=== PATIENT | female | born 1960 | race Caucasian/White ===

== ENCOUNTER → 2018-02-27 | Outpatient (CLI) | payer BC ==
[2018-02-27 12:29] LABS: BASOPHILS # (AUTO) 0.09 x10^3/uL (0-0.1); BASOPHILS % (AUTO) 1 % (0-1); EOSINOPHILS # (AUTO) 0.18 x10^3/uL (0-0.4); EOSINOPHILS % (AUTO) 3 % (1-7); LYMPHOCYTES # (AUTO) 1.18 x10^3/uL (1-3.4); LYMPHOCYTES % (AUTO) 16 % (22-44); MD NO; MEAN CORPUSCULAR HEMOGLOBIN 34.1 pg (27.0-34.8); MEAN CORPUSCULAR HGB CONC 34.4 g/dL (32.4-35.8); MEAN CORPUSCULAR VOLUME 99.2 fL (80-100); MEAN PLATELET VOLUME 10.4 fL (7.4-10.4); MONOCYTES # (AUTO) 0.58 x10^3/uL (0.2-0.8); MONOCYTES % (AUTO) 8 % (2-9); NEUTROPHILS # (AUTO) 5.27 x10^3/uL (1.8-6.8); NEUTROPHILS % (AUTO) 72 % (42-75); PLATELET COUNT 194 x10^3/uL (130-400); RED BLOOD COUNT 4.18 x10^6/uL (3.82-5.3); RED CELL DISTRIBUTION WIDTH 13.7 % (9.6-15.2)
[2018-02-27 12:49] LABS: CHLORIDE 118 mmol/L (98-107)
[2018-02-27 13:04] LABS: ALANINE AMINOTRANSFERASE 20 U/L (12-78); ALBUMIN 3.7 g/dL (3.4-5.0); ALKALINE PHOSPHATASE 76 U/L (45-117); ANION GAP 5 mmol/L (5-15); BILIRUBIN,TOTAL 0.3 mg/dL (0.2-1.0); CHOL/HDL RATIO 4.7; CHOLESTEROL, TOTAL 221 mg/dL (140-239); CREATININE 0.81 mg/dL (0.55-1.02); HDL CHOL % 21 % (28-40); HDL CHOLESTEROL (DIRECT) 47 mg/dL (40-60); LDL CHOLESTEROL,CALCULATED 152 mg/dL (54-169); LDL/HDL RATIO 3.2 (0.5-3.0); TOTAL PROTEIN 7.4 g/dL (6.4-8.2); TRIGLYCERIDES 109 mg/dL (50-200); VLDL CHOLESTEROL 22 mg/dL (0-25)
== END | disposition home or self-care (01) ==
LOC: CFH 10:29
PROVIDERS: ATTEND Physician Assistant
DX: M79.642 Pain in left hand (principal); M25.522 Pain in left elbow; R20.0 Anesthesia of skin; E55.9 Vitamin D deficiency, unspecified; I10 Essential (primary) hypertension; N81.4 Uterovaginal prolapse, unspecified; J44.9 Chronic obstructive pulmonary disease, unspecified; F17.200 Nicotine dependence, unspecified, uncomplicated; Z78.0 Asymptomatic menopausal state
CPT/HCPCS: 36415; 80053; 80061; 82306; 84443; 85025

== ENCOUNTER 2019-07-30 09:31 | Emergency (ER) | payer BC ==
[~2019-07-30] VITALS: Ht 162.6 cm; Wt 52.0 kg
[2019-07-30 09:39] VITALS: BP 167/76
[2019-07-30] MEDS ORDERED: LIDOCAINE-MPF 1%, 5ML ONE (10:12)
[2019-07-30] MEDS ORDERED: DIPH,PERTUSS(ACELL),TET VAC/PF 0.5 ML IM-VACC ONE ×2 (10:12→10:30)
[2019-07-30] MEDS ORDERED: LIDOCAINE-MPF 1%, 5ML INFIL ONE (10:30)
== END 2019-07-30 11:23 | disposition home or self-care (01) ==
LOC: ED 11:06
DX: L02.412 Cutaneous abscess of left axilla (principal); F17.200 Nicotine dependence, unspecified, uncomplicated
CPT/HCPCS: 10060; 90471; 90715; 99283

== ENCOUNTER 2019-08-01 09:32 | Emergency (ER) | payer BC ==
[~2019-08-01] VITALS: Ht 162.6 cm; Wt 52.4 kg
[2019-08-01 09:34] VITALS: BP 119/84
--- NOTE | 2019-08-01 09:46 | NUR ---
59 y/o female PRESENTS TO ED WITH C/O LEFT ARMPIT PAIN D/T ABSCESS. PER PT "I WAS HERE SUNDAY WITH AN ABSCESS. THEY DRAINED AND PACKED IT. I'VE BEEN ON ABX AND IT IS STILL SO PAINFUL." SIGNIFICANT OTHER BEDSIDE.
[2019-08-01] MEDS ORDERED: LISINOPRIL (09:48)
[2019-08-01] MEDS ORDERED: HYDROmorphone 1 MG/ML, 1ML INJ ONE (09:59)
[2019-08-01] MEDS ORDERED: HYDROmorphone 2 MG/ML, 1ML IM ONE (10:00)
[2019-08-01] MEDS ORDERED: LIDOCAINE-MPF 1%, 5ML ONE (10:00)
[2019-08-01] MEDS ORDERED: LIDOCAINE-MPF 1%, 5ML INFIL ONE (10:00)
--- NOTE | 2019-08-01 11:18 | NUR ---
Patient/Caregiver given discharge instructions and they have confirmed that they understand the instructions. Patient ambulatory with steady gait. PT LEFT WITH ALL PERSONAL BELONGINGS.
== END 2019-08-01 11:21 | disposition home or self-care (01) ==
LOC: ED 10:39
DX: L02.412 Cutaneous abscess of left axilla (principal); F17.200 Nicotine dependence, unspecified, uncomplicated
CPT/HCPCS: 10060; 96372; 99284; J1170

== ENCOUNTER 2019-08-03 08:40 | Emergency (ER) | payer BC ==
[~2019-08-03] VITALS: Ht 162.6 cm; Wt 51.0 kg
[~2019-08-03 08:40] MED LIST: LISINOPRIL
[2019-08-03 08:43] VITALS: BP 112/73
--- NOTE | 2019-08-03 08:52 | NUR ---
PT HERE FOR ABSCESS RECHECK IN LEFT ARMPIT. PT STATES INITIAL I&D WAS SUNDAY, THEN CAME BACK FOR A RECHECK SUNDAY AND WAS TOLD TO COME BACK AGAIN TODAY. PT STATES THERE IS PACKING IN WOUND.
--- NOTE | 2019-08-03 09:08 | NUR ---
Patient/Caregiver given discharge instructions and they have confirmed that they understand the instructions. Patient ambulatory with steady gait.
--- NOTE | 2019-08-03 09:20 | NUR ---
Patient/Caregiver given discharge instructions and they have confirmed that they understand the instructions. Patient ambulatory with steady gait.
== END 2019-08-03 09:21 | disposition home or self-care (01) ==
LOC: ED 09:05
DX: Z48.01 Encounter for change or removal of surgical wound dressing (principal)
CPT/HCPCS: 99282

== ENCOUNTER 2019-12-15 21:37 | Emergency (ER) | payer BC ==
[~2019-12-15] VITALS: Ht 162.6 cm; Wt 59.4 kg
[2019-12-15 21:48] VITALS: BP 171/97
[2019-12-15] MEDS ORDERED: IBUPROFEN 600 MG TABLET ONE (22:19)
[2019-12-15] MEDS ORDERED: IBUPROFEN 600 MG TABLET PO ONE (22:30)
== END 2019-12-15 23:10 | disposition home or self-care (01) ==
LOC: ED 23:00
DX: S93.491A Sprain of other ligament of right ankle, initial encounter (principal); F17.210 Nicotine dependence, cigarettes, uncomplicated; X50.0XXA Overexertion from strenuous movement or load, initial encounter; Y93.89 Activity, other specified; Y92.009 Unspecified place in unspecified non-institutional (private) residence as the place of occurrence of the external cause; Y99.8 Other external cause status
CPT/HCPCS: 99283

== ENCOUNTER 2020-03-13 09:30 | Emergency (ER) | payer BC ==
[~2020-03-13] VITALS: Ht 162.6 cm; Wt 55.2 kg
[2020-03-13 09:35] VITALS: BP 162/81
[2020-03-13] MEDS ORDERED: KETOROLAC 30 MG/1 ML IM ONE (10:00)
--- NOTE | 2020-03-13 10:13 | NUR ---
PT CAME IN POV BY SON. PT C/O LEFT ANKLE PAIN, NO TRAUMA NOTED. PT STATES PAIN STARTED HURTING AT WORK. PAIN 12/09. PT DENIES NUMBNESS AND TINGLING TO EXT.
[2020-03-13] MEDS ORDERED: KETOROLAC 30 MG/1 ML ONE (10:16)
--- NOTE | 2020-03-13 10:22 | NUR ---
MEDS ADMINISTERD PER MAR
--- NOTE | 2020-03-13 11:10 | NUR ---
PT AMBULATED TO THE DISCHARGE DESK. PT EXHIBITED A STEADY GAIT.
--- NOTE | 2020-03-13 11:13 | NUR ---
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 PT STATES HER PAIN FEELS "BETTER".
== END 2020-03-13 11:12 | disposition home or self-care (01) ==
LOC: ED 09:56
DX: M72.2 Plantar fascial fibromatosis (principal); M25.572 Pain in left ankle and joints of left foot
CPT/HCPCS: 73610; 73630; 96372; 99284; J1885

== ENCOUNTER 2020-03-21 10:02 | Inpatient (IN) | payer BC ==
[~2020-03-21] VITALS: Ht 162.6 cm; Wt 63.8 kg
[~2020-03-21 10:02] MED LIST changes: -LISINOPRIL; +LISINOPRIL PO
--- NOTE | 2020-03-21 10:25 | NUR ---
THIS IS A 60 YO F W/ C/O SUDDEN ONSET RT LWR BACK PAIN 06/10 WHICH RADIATES ACROSS FLANK AND INTO RT LWR ABD. PT DENIES INJURY, DENIES PAIN W/ URINATION. PT RESTING ON [employer] W/ CALL LIGHT IN REACH, RESP EVEN AND UNLABORED, NADN.
--- NOTE | 2020-03-21 10:40 | NUR ---
PT AMBULATED TO THE BR W/ A STEADY GAIT, URINE COLLECTED.
[2020-03-21 11:00] LABS: MICROSCOPIC INDICATED
[2020-03-21] MEDS ORDERED: ONDANSETRON 2MG/ML, 2ML IVPush ONE (11:00)
[2020-03-21] MEDS ORDERED: SODIUM CHLORIDE FLUSH 10ML SYR IVF ONE (11:00)
--- NOTE | 2020-03-21 11:00 | NUR ---
PIV STARTED, LABS DRAWN, PT MEDICATED PER EMAR. PT REPORTS RELIEF OF PAIN W/ MEDS. RESTING ON GURNEY W/ CALL LIGHT IN REACH AND FAMILY AT BEDSIDE. SIDE RAILS UPX2. AWAITING CT.
[2020-03-21] MEDS ORDERED: MORPHINE SULFATE 4 MG/ML, 1ML ONE ×2 (11:02→12:40)
[2020-03-21] MEDS ORDERED: ONDANSETRON 2MG/ML, 2ML ONE (11:02)
[2020-03-21] MEDS: MORPHINE SULFATE 4 MG/ML, 1ML IVPush PRN ×2 (11:09→12:43)
--- NOTE | 2020-03-21 11:10 | NUR ---
BEDSIDE REPORT FROM JASPREET COSTA.
[2020-03-21 11:27] LABS: MEAN CORPUSCULAR HEMOGLOBIN 33.3 pg (27.0-34.8); MEAN CORPUSCULAR HGB CONC 32.6 g/dL (32.4-35.8); MEAN CORPUSCULAR VOLUME 102.1 fL (80-100); MEAN PLATELET VOLUME 9.6 fL (7.4-10.4); PLATELET COUNT 168 x10^3/uL (130-400); RED BLOOD COUNT 4.34 x10^6/uL (3.82-5.3); RED CELL DISTRIBUTION WIDTH 14.2 % (9.6-15.2)
[2020-03-21 11:37] LABS: ALANINE AMINOTRANSFERASE 13 U/L (12-78); ALBUMIN 3.9 g/dL (3.4-5.0); ANION GAP 5 mmol/L (5-15); CALCIUM 9.7 mg/dL (8.5-10.1); CHLORIDE 117 mmol/L (98-107); CREATININE 1.41 mg/dL (0.55-1.02)
[2020-03-21 11:39] LABS: ALKALINE PHOSPHATASE 113 U/L (45-117); BILIRUBIN,TOTAL 0.3 mg/dL (0.2-1.0); TOTAL PROTEIN 8.5 g/dL (6.4-8.2)
--- NOTE | 2020-03-21 11:42 | NUR ---
PT IN CT.
--- NOTE | 2020-03-21 11:58 | NUR ---
BACK FROM CT, VSS. FALL PRECAUTIONS IN PLACE, CALL LIGHT WITHIN REACH.
[2020-03-21 12:04] LABS: BASOPHILS # (AUTO) 0.01 x10^3/uL (0-0.1); BASOPHILS % (AUTO) 0 % (0-1); EOSINOPHILS % (AUTO) 0 % (1-7); LYMPHOCYTES # (AUTO) 0.27 x10^3/uL (1-3.4); LYMPHOCYTES % (AUTO) 2 % (22-44); MD SCAN; MONOCYTES # (AUTO) 0.26 x10^3/uL (0.2-0.8); MONOCYTES % (AUTO) 2 % (2-9); NEUTROPHILS # (AUTO) 13.13 x10^3/uL (1.8-6.8); NEUTROPHILS % (AUTO) 96 % (42-75)
[2020-03-21] MEDS ORDERED: CEFTRIAXONE PMX 1GM/50ML 50 ML ONE (12:39)
--- NOTE | 2020-03-21 12:41 | NUR ---
PLACED ON 2L NC PT SPO2 DROPPED TO 89%.
--- NOTE | 2020-03-21 12:44 | NUR ---
LIVE SOURCE OPERATOR UROLOGY CALLED @ 2041
--- NOTE | 2020-03-21 12:49 | NUR ---
urology called back @ 1819
--- NOTE | 2020-03-21 12:51 | NUR ---
DISCUSSED WITH DR. ZHU TO INITIATE SEPSIS PROTOCOL.
--- NOTE | 2020-03-21 12:58 | NUR ---
LAB AT BEDSIDE FOR BLOOD CULTURES.
[2020-03-21] MEDS ORDERED: CEFTRIAXONE PMX 1GM/50ML 50 ML IV ONE (13:00)
[2020-03-21] MEDS ORDERED: SODIUM CHLORIDE 0.9% 1,000 ML IV ONE (13:00)
--- NOTE | 2020-03-21 13:11 | NUR ---
XRAY AT BEDSIDE.
--- NOTE | 2020-03-21 13:35 | NUR ---
REPORT GIVEN TO BOW REHAIRER.
[2020-03-21] MEDS ORDERED: MIDAZOLAM 1 MG/ML, 2ML ONE (13:46)
[2020-03-21] MEDS ORDERED: FENTANYL PF 100 MCG/2ML ONE (13:46)
[2020-03-21] MEDS ORDERED: OMNIPAQUE 350 MG/ML, 50 ML BOTTLE ONE ×2 (14:10→14:15)
[2020-03-21] MEDS ORDERED: EPHEDRINE 50 MG/ML, 1ML ONE (14:10)
[2020-03-21] MEDS ORDERED: PROPOFOL 10 MG/ML, 20ML ONE (14:10)
[2020-03-21] MEDS ORDERED: MEPERIDINE/PF 25MG/0.5ML IVPush PRN (14:30)
[2020-03-21] MEDS ORDERED: OXYcodone 5 MG/5 ML ORAL.SOL UDC PO PRN (14:30)
[2020-03-21] MEDS ORDERED: HYDROmorphone 1 MG/ML, 1ML INJ IVPush PRN (14:30)
[2020-03-21] MEDS ORDERED: DIAZEPAM 5 MG/ML, 2ML IVPush PRN (14:30)
[2020-03-21] MEDS ORDERED: FENTANYL PF 100 MCG/2ML IV PRN (14:30)
[2020-03-21] MEDS ORDERED: ONDANSETRON 2MG/ML, 2ML IVPush PRN (14:30)
[2020-03-21] MEDS ORDERED: ACETAMINOPHEN 325 MG TABLET PO PRN (14:30)
[2020-03-21] MEDS ORDERED: ALBUTEROL HFA 90 MCG/SPRAY INH ONE (15:00)
[2020-03-21] MEDS ORDERED: POTASSIUM CHLORIDE 20 MEQ in SODIUM CHLORIDE 0.9% 250 ML IV ONE (15:30)
[2020-03-21] MEDS ORDERED: SODIUM CHLORIDE 0.9% 1,000ML IVBOLUS ONE (15:30)
[2020-03-21] MEDS ORDERED: MELATONIN 5 MG TABLET PO PRN (15:30)
[2020-03-21] MEDS ORDERED: hydrALAzine 20 MG/ML, 1ML IVPush PRN (15:30)
[2020-03-21] MEDS ORDERED: BUTALB/APAP/CAFFEINE 50MG/325MG/40MG PO PRN (15:30)
[2020-03-21] MEDS ORDERED: BACLOFEN 10 MG TABLET PO PRN (15:30)
[2020-03-21] MEDS ORDERED: GABAPENTIN 300 MG CAPSULE PO PRN (15:30)
[2020-03-21] MEDS: ASCORBIC ACID 500 MG TABLET PO SCH (17:13)
[2020-03-21] MEDS: BUTALB/APAP/CAFFEINE 50MG/325MG/40MG PO PRN (17:13)
[2020-03-21] MEDS: ENOXAPARIN 40 MG/0.4 ML SQ SCH (17:13)
[2020-03-21 19:15] VITALS: BP 100/69
[2020-03-21] MEDS ORDERED: ASPI-691 PO (20:00)
[2020-03-21] MEDS ORDERED: ALBU18HF INH (20:06)
[2020-03-21] MEDS: ALBUTEROL HFA 90 MCG/SPRAY INH PRN (20:27)
[2020-03-21] MEDS: NICOTINE 21 MG/24 HR PATCH.TD24 TD SCH (20:48)
[2020-03-21] MEDS: DOCUSATE 100 MG CAPSULE PO SCH (20:48)
[2020-03-21 23:31] VITALS: BP 113/77
[2020-03-22] MEDS: CEFTRIAXONE PMX 1GM/50ML 50 ML IV SCH ×2 (01:11→13:49)
[2020-03-22] MEDS: BUTALB/APAP/CAFFEINE 50MG/325MG/40MG PO PRN (01:24)
[2020-03-22 03:46] VITALS: BP 102/70
[2020-03-22] MEDS: ALBUTEROL HFA 90 MCG/SPRAY INH PRN (05:46)
[2020-03-22 06:40] LABS: MEAN CORPUSCULAR HEMOGLOBIN 33.3 pg (27.0-34.8); MEAN CORPUSCULAR HGB CONC 32.4 g/dL (32.4-35.8); MEAN PLATELET VOLUME 9.4 fL (7.4-10.4); PLATELET COUNT 122 x10^3/uL (130-400); RED BLOOD COUNT 3.74 x10^6/uL (3.82-5.3); RED CELL DISTRIBUTION WIDTH 14.9 % (9.6-15.2)
[2020-03-22 06:47] LABS: CALCIUM 8.4 mg/dL (8.5-10.1); CHLORIDE 118 mmol/L (98-107)
[2020-03-22 06:52] LABS: ALANINE AMINOTRANSFERASE 8 U/L (12-78); ALBUMIN 2.8 g/dL (3.4-5.0); ALKALINE PHOSPHATASE 88 U/L (45-117); ANION GAP 7 mmol/L (5-15); BILIRUBIN,TOTAL 0.4 mg/dL (0.2-1.0); CREATININE 1.31 mg/dL (0.55-1.02); TOTAL PROTEIN 6.7 g/dL (6.4-8.2)
[2020-03-22 07:09] LABS: BASOPHILS # (AUTO) 0.04 x10^3/uL (0-0.1); BASOPHILS % (AUTO) 0 % (0-1); EOSINOPHILS # (AUTO) 0.02 x10^3/uL (0-0.4); EOSINOPHILS % (AUTO) 0 % (1-7); LYMPHOCYTES # (AUTO) 0.57 x10^3/uL (1-3.4); LYMPHOCYTES % (AUTO) 4 % (22-44); MD SCAN; MONOCYTES # (AUTO) 0.77 x10^3/uL (0.2-0.8); MONOCYTES % (AUTO) 5 % (2-9); NEUTROPHILS # (AUTO) 12.78 x10^3/uL (1.8-6.8); NEUTROPHILS % (AUTO) 90 % (42-75)
[2020-03-22 07:17] VITALS: BP 146/93
[2020-03-22] MEDS ORDERED: ACETAMINOPHEN 325 MG TABLET ONE (07:28)
[2020-03-22] MEDS ORDERED: ACETAMINOPHEN 325 MG TABLET PO PRN (07:30)
[2020-03-22] MEDS: MULTIVITS,STRESS FORMULA 1 TABLET PO SCH (08:36)
[2020-03-22] MEDS: ZINC SULFATE 220 MG CAPSULE PO SCH (08:36)
[2020-03-22] MEDS: DOCUSATE 100 MG CAPSULE PO SCH ×2 (08:36→21:40)
[2020-03-22] MEDS: ASCORBIC ACID 500 MG TABLET PO SCH ×2 (08:36→17:46)
[2020-03-22] MEDS: SENNA/DOCUSATE TABLET PO SCH (08:36)
[2020-03-22] MEDS: CHOLECALCIFEROL 5,000u TAB PO SCH (08:37)
[2020-03-22] MEDS ORDERED: ASA/APAP/ CAFFEINE TABLET PO ONE (11:00)
[2020-03-22 14:07] VITALS: BP 146/80
[2020-03-22] MEDS ORDERED: OPIUM/BELLADONNA SUPP.RECT 16.2-60 MG PR PRN (15:30)
[2020-03-22] MEDS: PHENAZOPYRIDINE 200 MG TABLET PO SCH ×2 (15:46→21:40)
[2020-03-22] MEDS: SODIUM CHLORIDE 0.9% 1,000 ML IV SCH (15:50)
[2020-03-22] MEDS: ENOXAPARIN 40 MG/0.4 ML SQ SCH (15:50)
[2020-03-22 18:36] VITALS: BP 142/82
[2020-03-22] MEDS ORDERED: MAGNESIUM SULFATE PMX 2GM/50ML 50 ML IV ONE (19:00)
[2020-03-22] MEDS: ASA/APAP/ CAFFEINE TABLET PO PRN (19:27)
[2020-03-22] MEDS: NICOTINE 21 MG/24 HR PATCH.TD24 TD SCH (21:00)
[2020-03-22] MEDS ORDERED: ONDANSETRON 2MG/ML, 2ML ONE (23:16)
[2020-03-22] MEDS: ONDANSETRON 2MG/ML, 2ML IVPush PRN (23:18)
[2020-03-23] MEDS: SODIUM CHLORIDE 0.9% 1,000 ML IV SCH ×4 (00:10→19:26)
[2020-03-23] MEDS: CEFTRIAXONE PMX 1GM/50ML 50 ML IV SCH ×2 (02:09→15:14)
[2020-03-23] MEDS: ASA/APAP/ CAFFEINE TABLET PO PRN ×3 (02:51→19:59)
[2020-03-23 02:55] VITALS: BP 123/89
[2020-03-23 05:45] LABS: CHLORIDE 120 mmol/L (98-107)
[2020-03-23 05:51] LABS: ALANINE AMINOTRANSFERASE 11 U/L (12-78); ALBUMIN 2.3 g/dL (3.4-5.0); ALKALINE PHOSPHATASE 95 U/L (45-117); ANION GAP 5 mmol/L (5-15); BILIRUBIN,TOTAL 0.2 mg/dL (0.2-1.0); CALCIUM 8.6 mg/dL (8.5-10.1); CREATININE 0.96 mg/dL (0.55-1.02); TOTAL PROTEIN 6.1 g/dL (6.4-8.2)
[2020-03-23 06:49] LABS: BASOPHILS # (AUTO) 0.03 x10^3/uL (0-0.1); BASOPHILS % (AUTO) 0 % (0-1); EOSINOPHILS # (AUTO) 0.01 x10^3/uL (0-0.4); EOSINOPHILS % (AUTO) 0 % (1-7); LYMPHOCYTES # (AUTO) 0.35 x10^3/uL (1-3.4); LYMPHOCYTES % (AUTO) 5 % (22-44); MD SCAN; MEAN CORPUSCULAR HEMOGLOBIN 33.3 pg (27.0-34.8); MEAN CORPUSCULAR HGB CONC 32.6 g/dL (32.4-35.8); MEAN CORPUSCULAR VOLUME 102.3 fL (80-100); MEAN PLATELET VOLUME 9.7 fL (7.4-10.4); MONOCYTES # (AUTO) 0.57 x10^3/uL (0.2-0.8); MONOCYTES % (AUTO) 8 % (2-9); NEUTROPHILS # (AUTO) 6.32 x10^3/uL (1.8-6.8); NEUTROPHILS % (AUTO) 87 % (42-75); PLATELET COUNT 88 x10^3/uL (130-400); RED BLOOD COUNT 3.23 x10^6/uL (3.82-5.3); RED CELL DISTRIBUTION WIDTH 14.7 % (9.6-15.2)
[2020-03-23] MEDS: CHOLECALCIFEROL 5,000u TAB PO SCH (07:44)
[2020-03-23] MEDS: ZINC SULFATE 220 MG CAPSULE PO SCH (07:44)
[2020-03-23] MEDS: SENNA/DOCUSATE TABLET PO SCH (07:44)
[2020-03-23] MEDS: PHENAZOPYRIDINE 200 MG TABLET PO SCH ×3 (07:44→19:58)
[2020-03-23] MEDS: DOCUSATE 100 MG CAPSULE PO SCH ×2 (07:44→19:59)
[2020-03-23] MEDS: ASCORBIC ACID 500 MG TABLET PO SCH ×2 (07:45→15:51)
[2020-03-23] MEDS: NICOTINE 21 MG/24 HR PATCH.TD24 TD SCH (07:45)
[2020-03-23] MEDS: MULTIVITS,STRESS FORMULA 1 TABLET PO SCH (07:45)
[2020-03-23 08:13] VITALS: BP 139/82
[2020-03-23 15:30] VITALS: BP 179/99
[2020-03-23] MEDS: ENOXAPARIN 40 MG/0.4 ML SQ SCH (15:51)
[2020-03-23] MEDS: LABETALOL 5MG/ML, 20ML IVPush PRN (15:52)
[2020-03-23 16:57] VITALS: BP 152/89
[2020-03-23] MEDS ORDERED: MELATONIN 5 MG TABLET PO PRN (17:30)
[2020-03-23] MEDS ORDERED: CETIRIZINE 10 MG TABLET PO PRN (17:30)
[2020-03-23] MEDS: TAMSULOSIN 0.4 MG CAP.ER.24H PO SCH (18:35)
[2020-03-23 18:43] VITALS: BP 128/90
[2020-03-24] MEDS: SODIUM CHLORIDE 0.9% 1,000 ML IV SCH ×3 (01:18→14:40)
[2020-03-24 01:20] VITALS: BP_SYST 167; BP_DIAS 105; BP_DIAS 110
[2020-03-24] MEDS: LABETALOL 5MG/ML, 20ML IVPush PRN (01:33)
[2020-03-24] MEDS: ASA/APAP/ CAFFEINE TABLET PO PRN ×3 (01:33→17:37)
[2020-03-24 02:45] VITALS: BP 143/98
[2020-03-24] MEDS: CEFTRIAXONE PMX 1GM/50ML 50 ML IV SCH ×2 (03:19→15:40)
[2020-03-24] MEDS: NICOTINE 21 MG/24 HR PATCH.TD24 TD SCH (07:07)
[2020-03-24 08:00] VITALS: BP 151/96
[2020-03-24] MEDS: ONDANSETRON 2MG/ML, 2ML IVPush PRN (08:27)
[2020-03-24] MEDS: PHENAZOPYRIDINE 200 MG TABLET PO SCH ×2 (08:36→15:40)
[2020-03-24] MEDS: CHOLECALCIFEROL 5,000u TAB PO SCH (08:36)
[2020-03-24] MEDS: DOCUSATE 100 MG CAPSULE PO SCH (08:36)
[2020-03-24] MEDS: TAMSULOSIN 0.4 MG CAP.ER.24H PO SCH (08:36)
[2020-03-24] MEDS: SENNA/DOCUSATE TABLET PO SCH (08:36)
[2020-03-24] MEDS ORDERED: LISINOPRIL 20 MG TABLET PO SCH (09:00)
[2020-03-24 13:26] VITALS: BP 155/99
[2020-03-24] MEDS: ENOXAPARIN 40 MG/0.4 ML SQ SCH (15:40)
[2020-03-24 16:34] VITALS: BP 148/94
[2020-03-24] MEDS ORDERED: TAMS-11 PO (17:11)
[2020-03-24] MEDS ORDERED: ACID1TAB7 PO (17:11)
[2020-03-24] MEDS ORDERED: CIPR500T87 PO (17:11)
[2020-03-24] MEDS ORDERED: PHEN-583 PO (17:11)
[2020-03-24] MEDS ORDERED: LACTOBACILLUS CHEW TABLET PO SCH (21:00)
[2020-03-24] MEDS ORDERED: CIPROFLOXACIN 500 MG TABLET PO SCH (21:00)
== END 2020-03-24 17:45 | disposition home or self-care (01) | DRG 854 ==
LOC: ED 11:19 → EDIP 13:35 → 4NE 16:10
PROVIDERS: ADMIT Hospitalist; ATTEND Internal Medicine
PROC: 0T788DZ Dilation of Bilateral Ureters with Intraluminal Device, Via Natural or Artificial Opening Endoscopic (ICD-10-PCS; principal; 2020-03-21 13:45)
DX: A41.9 Sepsis, unspecified organism (principal); E87.0 Hyperosmolality and hypernatremia; N13.6 Pyonephrosis; D53.9 Nutritional anemia, unspecified; D69.6 Thrombocytopenia, unspecified; E83.42 Hypomagnesemia; E87.6 Hypokalemia; E88.09 Other disorders of plasma-protein metabolism, not elsewhere classified; F17.200 Nicotine dependence, unspecified, uncomplicated; I10 Essential (primary) hypertension; J44.9 Chronic obstructive pulmonary disease, unspecified; Z87.440 Personal history of urinary (tract) infections; Z87.442 Personal history of urinary calculi
CPT/HCPCS: 36415; 71045; 74176; 74420; 80053; 81001; 83605; 83690; 83735; 85025; 87040; 87086; 87635; 93005; 96365; 96375; 96376; 99291; G0378; J0696; J1650; J2250; J2405; J2704; J3010; J3480; Q9967; C1758; C1769; C2617; J2270; J3475; J7030; J7050

== ENCOUNTER 2020-04-01 12:08 | Inpatient (IN) | payer BC ==
[~2020-04-01] VITALS: Ht 162.6 cm; Wt 65.1 kg
[~2020-04-01 12:08] MED LIST changes: +ACID1TAB7 PO; +ALBU18HF INH; +ASPI-691 PO; +CIPR500T87 PO; +PHEN-583 PO; +TAMS-11 PO
--- NOTE | 2020-04-01 12:26 | NUR ---
PT AMBULATED TO RESTROOM WITH STEADY GAIT TO PROVIDE URINE SAMPLE. UA ORDERED PER PROTOCOL AND SENT TO LAB.
[2020-04-01 12:44] LABS: MICROSCOPIC INDICATED
[2020-04-01] MEDS ORDERED: MORPHINE SULFATE 4 MG/ML, 1ML ONE ×2 (12:48→13:30)
[2020-04-01] MEDS ORDERED: ONDANSETRON 2MG/ML, 2ML ONE (12:48)
[2020-04-01] MEDS: MORPHINE SULFATE 4 MG/ML, 1ML IVPush PRN ×2 (12:50→13:32)
--- NOTE | 2020-04-01 12:53 | NUR ---
PIV PLACED, LABS DRAWN. MEDS ADMIN PER AUG. PT POSITIONED FOR COMFORT. SPOUSE AT BEDSIDE.
[2020-04-01] MEDS ORDERED: ONDANSETRON 2MG/ML, 2ML IVPush ONE (13:00)
[2020-04-01] MEDS ORDERED: SODIUM CHLORIDE FLUSH 10ML SYR IVF ONE (13:00)
[2020-04-01 13:18] LABS: BASOPHILS # (AUTO) 0.09 x10^3/uL (0-0.1); BASOPHILS % (AUTO) 1 % (0-1); EOSINOPHILS % (AUTO) 4 % (1-7); LYMPHOCYTES # (AUTO) 1.41 x10^3/uL (1-3.4); LYMPHOCYTES % (AUTO) 12 % (22-44); MD NO; MEAN CORPUSCULAR HEMOGLOBIN 32.8 pg (27.0-34.8); MEAN CORPUSCULAR HGB CONC 32.9 g/dL (32.4-35.8); MEAN PLATELET VOLUME 8.6 fL (7.4-10.4); MONOCYTES % (AUTO) 9 % (2-9); NEUTROPHILS # (AUTO) 8.47 x10^3/uL (1.8-6.8); NEUTROPHILS % (AUTO) 75 % (42-75); PLATELET COUNT 635 x10^3/uL (130-400); RED BLOOD COUNT 4.18 x10^6/uL (3.82-5.3)
[2020-04-01 13:33] LABS: ALANINE AMINOTRANSFERASE 19 U/L (12-78); ALBUMIN 3.1 g/dL (3.4-5.0); ANION GAP 4 mmol/L (5-15); CALCIUM 9.6 mg/dL (8.5-10.1); CHLORIDE 112 mmol/L (98-107); CREATININE 0.99 mg/dL (0.55-1.02)
[2020-04-01 13:33] LABS: MICROSCOPIC INDICATED
--- NOTE | 2020-04-01 13:34 | NUR ---
PT C/O 02/08 PAIN. SECOND DOSE PAIN CARPENTER/LABOR.
[2020-04-01 13:35] LABS: ALKALINE PHOSPHATASE 141 U/L (45-117); BILIRUBIN,TOTAL 0.4 mg/dL (0.2-1.0); TOTAL PROTEIN 8.6 g/dL (6.4-8.2)
--- NOTE | 2020-04-01 13:38 | NUR ---
ALL RESULTS ARE BACK AT THIS TIME. CHART UP FOR RECHECK.
[2020-04-01] MEDS ORDERED: CEFTRIAXONE PMX 1GM/50ML 50 ML ONE (14:24)
--- NOTE | 2020-04-01 14:28 | NUR ---
IV ABX ADMIN PER AUG. PT TO BE ADMIT.
[2020-04-01] MEDS ORDERED: CEFTRIAXONE PMX 1GM/50ML 50 ML IV ONE (14:30)
[2020-04-01] MEDS ORDERED: SODIUM CHLORIDE FLUSH 10ML SYR IVF PRN (15:00)
[2020-04-01] MEDS ORDERED: TEMAZEPAM 15 MG CAPSULE PO PRN (15:30)
[2020-04-01] MEDS ORDERED: ALBUTEROL HFA 90 MCG/SPRAY INH PRN (15:30)
[2020-04-01] MEDS ORDERED: ACETAMINOPHEN 325 MG TABLET PO PRN (15:30)
[2020-04-01] MEDS ORDERED: METOCLOPRAMIDE 5 MG/ML, 2ML IVPush PRN (15:30)
[2020-04-01] MEDS ORDERED: ENALAPRILAT 1.25 MG/ML, 2ML IVPush PRN (15:30)
[2020-04-01 15:55] VITALS: BP 164/93
[2020-04-01] MEDS ORDERED: LISINOPRIL 40 MG TABLET PO SCH (15:59)
[2020-04-01 16:03] VITALS: BP 164/93
[2020-04-01] MEDS: morphine SULFATE 10 MG/ML, 1ML IVPush PRN ×2 (16:30→20:53)
[2020-04-01] MEDS: NS + 20MEQ KCL 1,000 ML IV SCH (16:31)
[2020-04-01] MEDS: PHENAZOPYRIDINE 200 MG TABLET PO SCH ×2 (16:31→20:54)
[2020-04-01 18:42] VITALS: BP 148/80
[2020-04-01] MEDS: ASA/APAP/ CAFFEINE TABLET PO SCH (20:54)
[2020-04-01] MEDS ORDERED: CIPROFLOXACIN 500 MG TABLET PO SCH (21:00)
[2020-04-02 00:20] VITALS: BP 160/86
[2020-04-02] MEDS: morphine SULFATE 10 MG/ML, 1ML IVPush PRN ×7 (00:24→23:40)
[2020-04-02] MEDS: NS + 20MEQ KCL 1,000 ML IV SCH ×3 (00:45→16:32)
[2020-04-02 04:25] VITALS: BP 147/85
[2020-04-02 05:18] LABS: CHLORIDE 117 mmol/L (98-107)
[2020-04-02 05:26] LABS: BASOPHILS # (AUTO) 0.02 x10^3/uL (0-0.1); BASOPHILS % (AUTO) 0 % (0-1); EOSINOPHILS # (AUTO) 0.37 x10^3/uL (0-0.4); EOSINOPHILS % (AUTO) 3 % (1-7); LYMPHOCYTES # (AUTO) 0.68 x10^3/uL (1-3.4); LYMPHOCYTES % (AUTO) 5 % (22-44); MD NO; MEAN CORPUSCULAR HEMOGLOBIN 32.7 pg (27.0-34.8); MEAN CORPUSCULAR HGB CONC 32.4 g/dL (32.4-35.8); MEAN PLATELET VOLUME 8.5 fL (7.4-10.4); MONOCYTES # (AUTO) 1.01 x10^3/uL (0.2-0.8); MONOCYTES % (AUTO) 8 % (2-9); NEUTROPHILS % (AUTO) 85 % (42-75); PLATELET COUNT 484 x10^3/uL (130-400); RED CELL DISTRIBUTION WIDTH 15.5 % (9.6-15.2)
[2020-04-02 05:47] LABS: ANION GAP 2 mmol/L (5-15); CALCIUM 8.7 mg/dL (8.5-10.1); CREATININE 0.95 mg/dL (0.55-1.02)
[2020-04-02 07:56] VITALS: BP 143/81
[2020-04-02] MEDS: ASA/APAP/ CAFFEINE TABLET PO SCH ×2 (09:07→21:58)
[2020-04-02] MEDS: LISINOPRIL 40 MG TABLET PO SCH (09:07)
[2020-04-02] MEDS: TAMSULOSIN 0.4 MG CAP.ER.24H PO SCH (09:07)
[2020-04-02] MEDS: PHENAZOPYRIDINE 200 MG TABLET PO SCH ×3 (09:07→21:58)
[2020-04-02] MEDS: KETOROLAC 30 MG/1 ML IV PRN ×2 (09:07→16:31)
[2020-04-02] MEDS ORDERED: CEFTRIAXONE PMX 2GM/50ML 50 ML IV SCH (12:00)
[2020-04-02 12:55] VITALS: BP 124/77
[2020-04-02] MEDS: AMPICILLIN/SULBACTAM 3 GM in SODIUM CHLORIDE 0.9% 100 ML IV SCH ×2 (16:32→23:39)
[2020-04-02 18:50] VITALS: BP 149/66
[2020-04-02] MEDS: ONDANSETRON ODT 4 MG PO PRN (20:21)
[2020-04-03] MEDS: NS + 20MEQ KCL 1,000 ML IV SCH ×4 (00:14→23:51)
[2020-04-03 00:21] VITALS: BP 130/85
[2020-04-03] MEDS ORDERED: LORazepam 0.5MG TABLET PO PRN (04:30)
[2020-04-03] MEDS: LISINOPRIL 40 MG TABLET PO SCH (07:30)
[2020-04-03] MEDS: AMPICILLIN/SULBACTAM 3 GM in SODIUM CHLORIDE 0.9% 100 ML IV SCH (07:36)
[2020-04-03 07:44] VITALS: BP 129/84
[2020-04-03] MEDS: ASA/APAP/ CAFFEINE TABLET PO SCH ×2 (08:55→21:00)
[2020-04-03] MEDS: PHENAZOPYRIDINE 200 MG TABLET PO SCH ×3 (08:55→20:27)
[2020-04-03] MEDS: TAMSULOSIN 0.4 MG CAP.ER.24H PO SCH (08:55)
[2020-04-03] MEDS ORDERED: FENTANYL PF 100 MCG/2ML IV PRN (09:00)
[2020-04-03] MEDS ORDERED: LORazepam 2 MG/ML, 1ML IVPush PRN (09:00)
[2020-04-03] MEDS ORDERED: KETOROLAC 30 MG/1 ML IVPush PRN (09:00)
[2020-04-03] MEDS ORDERED: HYDROmorphone 1 MG/ML, 1ML INJ IVPush PRN (09:00)
[2020-04-03] MEDS ORDERED: LABETALOL 5MG/ML, 20ML IV PRN (09:00)
[2020-04-03] MEDS ORDERED: ACETAMINOPHEN 325 MG TABLET PO PRN (09:00)
[2020-04-03] MEDS ORDERED: METHOCARBAMOL 1,000 MG in DEXTROSE 5% 100 ML IV PRN (09:00)
[2020-04-03] MEDS ORDERED: EPHEDRINE 50 MG/ML, 1ML IVPush PRN (09:00)
[2020-04-03] MEDS ORDERED: PROMETHAZINE 12.5 MG SUPP PR PRN (09:00)
[2020-04-03] MEDS ORDERED: OXYcodone 5 MG/5 ML ORAL.SOL UDC PO PRN (09:00)
[2020-04-03] MEDS ORDERED: hydrALAzine 20 MG/ML, 1ML IV PRN (09:00)
[2020-04-03] MEDS ORDERED: ONDANSETRON 2MG/ML, 2ML IVPush PRN (09:00)
[2020-04-03] MEDS ORDERED: FENTANYL PF 250 MCG/5ML ONE (09:11)
[2020-04-03] MEDS ORDERED: DEXAMETHASONE 4 MG/ML, 1ML ONE (10:54)
[2020-04-03] MEDS ORDERED: ROCURONIUM 10MG/ML,5ML ONE (10:54)
[2020-04-03] MEDS ORDERED: PROPOFOL 50 ML ONE (10:54)
[2020-04-03] MEDS ORDERED: CEFAZOLIN 1,000 MG ONE (10:54)
[2020-04-03] MEDS ORDERED: SUCCINYLCHOLINE 20 MG/ML, 10ML ONE (10:54)
[2020-04-03] MEDS ORDERED: GLYCOPYRROLATE 0.2MG/1ML, 5ML ONE (10:54)
[2020-04-03] MEDS ORDERED: ONDANSETRON 2MG/ML, 2ML ONE (10:54)
[2020-04-03] MEDS ORDERED: NEOSTIGMINE 1 MG/ML, 10ML ONE (10:54)
[2020-04-03] MEDS ORDERED: PROPOFOL 10 MG/ML, 20ML ONE (10:54)
[2020-04-03] MEDS ORDERED: [UNRECOGNIZED DRUG - OTHER] INJ ONE (11:22)
[2020-04-03] MEDS ORDERED: FENTANYL PF 100 MCG/2ML ONE (12:12)
[2020-04-03] MEDS ORDERED: DEXMEDETOMIDINE 200 MCG/2 ML ONE (12:17)
[2020-04-03] MEDS ORDERED: MORPHINE SULFATE 4 MG/ML, 1ML ONE (12:23)
[2020-04-03] MEDS ORDERED: LORazepam 2 MG/ML, 1ML ONE (12:40)
[2020-04-03] MEDS ORDERED: MORPHINE SULFATE 4 MG/ML, 1ML IVPush ONE (13:30)
[2020-04-03] MEDS ORDERED: MEROPENEM 1 GM in SODIUM CHLORIDE 0.9% 100 ML IV SCH (14:00)
[2020-04-03] MEDS ORDERED: DIPHENHYDRAMINE 50 MG/ML, 1ML IVPush PRN (14:00)
[2020-04-03] MEDS ORDERED: VANCOMYCIN PER PHARMACY MC PRN (14:00)
[2020-04-03] MEDS ORDERED: LACTATED RINGERS 1,000 ML IVBOLUS ONE (14:00)
[2020-04-03] MEDS ORDERED: ACETAMINOPHEN 650 MG SUPP PR PRN (14:30)
[2020-04-03] MEDS: LINEZOLID 600 MG TABLET PO SCH ×2 (15:44→20:27)
[2020-04-03] MEDS: ERTAPENEM 1 GM in SODIUM CHLORIDE 0.9% 50 ML IV SCH (15:53)
[2020-04-03 16:05] LABS: BASOPHILS % (AUTO) 0 % (0-1); EOSINOPHILS # (AUTO) 0.01 x10^3/uL (0-0.4); EOSINOPHILS % (AUTO) 0 % (1-7); LYMPHOCYTES # (AUTO) 0.07 x10^3/uL (1-3.4); LYMPHOCYTES % (AUTO) 0 % (22-44); MD NO; MEAN CORPUSCULAR HEMOGLOBIN 32.4 pg (27.0-34.8); MEAN CORPUSCULAR HGB CONC 32.1 g/dL (32.4-35.8); MEAN PLATELET VOLUME 8.2 fL (7.4-10.4); MONOCYTES # (AUTO) 0.04 x10^3/uL (0.2-0.8); MONOCYTES % (AUTO) 0 % (2-9); NEUTROPHILS # (AUTO) 16.13 x10^3/uL (1.8-6.8); NEUTROPHILS % (AUTO) 99 % (42-75); PLATELET COUNT 326 x10^3/uL (130-400); RED BLOOD COUNT 3.24 x10^6/uL (3.82-5.3); RED CELL DISTRIBUTION WIDTH 14.7 % (9.6-15.2)
[2020-04-03 16:06] LABS: TROPONIN I 0.444 ng/mL (0.000-0.045)
[2020-04-03] MEDS: KETOROLAC 30 MG/1 ML IV PRN (20:30)
[2020-04-04 07:24] LABS: MEAN CORPUSCULAR HGB CONC 31.5 g/dL (32.4-35.8); MEAN PLATELET VOLUME 8.6 fL (7.4-10.4); PLATELET COUNT 239 x10^3/uL (130-400); RED BLOOD COUNT 2.89 x10^6/uL (3.82-5.3); RED CELL DISTRIBUTION WIDTH 15.2 % (9.6-15.2)
[2020-04-04 07:28] LABS: ANION GAP 5 mmol/L (5-15); CALCIUM 8.4 mg/dL (8.5-10.1); CHLORIDE 116 mmol/L (98-107); CREATININE 1.23 mg/dL (0.55-1.02)
[2020-04-04 07:48] LABS: BASOPHILS % (AUTO) 0 % (0-1); EOSINOPHILS # (AUTO) 0.02 x10^3/uL (0-0.4); EOSINOPHILS % (AUTO) 0 % (1-7); LYMPHOCYTES # (AUTO) 0.49 x10^3/uL (1-3.4); LYMPHOCYTES % (AUTO) 2 % (22-44); MD SCAN; MONOCYTES % (AUTO) 5 % (2-9); NEUTROPHILS # (AUTO) 20.41 x10^3/uL (1.8-6.8); NEUTROPHILS % (AUTO) 92 % (42-75)
[2020-04-04] MEDS: TAMSULOSIN 0.4 MG CAP.ER.24H PO SCH (09:14)
[2020-04-04] MEDS: LINEZOLID 600 MG TABLET PO SCH ×2 (09:14→20:21)
[2020-04-04] MEDS: LISINOPRIL 40 MG TABLET PO SCH (09:14)
[2020-04-04] MEDS: PHENAZOPYRIDINE 200 MG TABLET PO SCH ×2 (09:14→16:00)
[2020-04-04] MEDS: ASA/APAP/ CAFFEINE TABLET PO SCH ×2 (10:02→20:21)
[2020-04-04] MEDS: KETOROLAC 30 MG/1 ML IV PRN (11:31)
[2020-04-04] MEDS: morphine SULFATE 10 MG/ML, 1ML IVPush PRN ×3 (11:31→20:21)
[2020-04-04] MEDS: ONDANSETRON ODT 4 MG PO PRN (11:31)
[2020-04-04] MEDS: ERTAPENEM 1 GM in SODIUM CHLORIDE 0.9% 50 ML IV SCH (14:57)
[2020-04-04 19:28] VITALS: BP 143/82
[2020-04-05 01:41] VITALS: BP 142/79
[2020-04-05] MEDS: morphine SULFATE 10 MG/ML, 1ML IVPush PRN (05:32)
[2020-04-05 06:17] LABS: ANION GAP 7 mmol/L (5-15); BASOPHILS % (AUTO) 1 % (0-1); CALCIUM 8.9 mg/dL (8.5-10.1); CHLORIDE 118 mmol/L (98-107); EOSINOPHILS % (AUTO) 2 % (1-7); LYMPHOCYTES % (AUTO) 3 % (22-44); MEAN CORPUSCULAR HEMOGLOBIN 32.2 pg (27.0-34.8); MEAN PLATELET VOLUME 9.6 fL (7.4-10.4); MONOCYTES % (AUTO) 8 % (2-9); NEUTROPHILS % (AUTO) 87 % (42-75); PLATELET COUNT 226 x10^3/uL (130-400); RED BLOOD COUNT 2.91 x10^6/uL (3.82-5.3); RED CELL DISTRIBUTION WIDTH 14.6 % (9.6-15.2)
[2020-04-05] MEDS ORDERED: GLUCAGON 1 MG IM PRN (07:00)
[2020-04-05] MEDS ORDERED: DEXTROSE 50%, 50ML SYRINGE IVPush PRN (07:00)
[2020-04-05] MEDS ORDERED: DEXTROSE 4 GM TAB.CHEW PO PRN (07:00)
[2020-04-05 07:25] VITALS: BP 104/69
[2020-04-05 08:16] LABS: MD SCAN
[2020-04-05] MEDS: LISINOPRIL 40 MG TABLET PO SCH (08:21)
[2020-04-05] MEDS: ASA/APAP/ CAFFEINE TABLET PO SCH ×2 (08:21→19:16)
[2020-04-05] MEDS: TAMSULOSIN 0.4 MG CAP.ER.24H PO SCH (08:21)
[2020-04-05] MEDS: LINEZOLID 600 MG TABLET PO SCH ×2 (08:21→19:16)
[2020-04-05] MEDS: KETOROLAC 30 MG/1 ML IV PRN (08:39)
[2020-04-05] MEDS: SODIUM CHLORIDE FLUSH 10ML SYR IVF SCH ×2 (09:00→19:16)
[2020-04-05 09:37] VITALS: BP 153/88
[2020-04-05] MEDS: ONDANSETRON ODT 4 MG PO PRN (11:20)
[2020-04-05 13:55] VITALS: BP 149/79
[2020-04-05] MEDS: ERTAPENEM 1 GM in SODIUM CHLORIDE 0.9% 50 ML IV SCH (14:49)
[2020-04-05 19:02] VITALS: BP 147/80
[2020-04-05] MEDS ORDERED: DOCUSATE 100 MG CAPSULE ONE (19:11)
[2020-04-05] MEDS: DOCUSATE 100 MG CAPSULE PO SCH (19:16)
[2020-04-06 01:10] VITALS: BP 180/98
[2020-04-06 02:35] VITALS: BP 151/93
[2020-04-06 06:59] LABS: BASOPHILS % (AUTO) 1 % (0-1); EOSINOPHILS % (AUTO) 3 % (1-7); LYMPHOCYTES % (AUTO) 8 % (22-44); MEAN CORPUSCULAR HEMOGLOBIN 31.8 pg (27.0-34.8); MEAN CORPUSCULAR HGB CONC 31.8 g/dL (32.4-35.8); MEAN PLATELET VOLUME 9.4 fL (7.4-10.4); MONOCYTES % (AUTO) 10 % (2-9); NEUTROPHILS % (AUTO) 79 % (42-75); PLATELET COUNT 213 x10^3/uL (130-400); RED BLOOD COUNT 2.91 x10^6/uL (3.82-5.3); RED CELL DISTRIBUTION WIDTH 14.4 % (9.6-15.2)
[2020-04-06 07:30] VITALS: BP 162/85
[2020-04-06 07:35] LABS: MD SCAN
[2020-04-06] MEDS: LINEZOLID 600 MG TABLET PO SCH (08:07)
[2020-04-06] MEDS: LISINOPRIL 40 MG TABLET PO SCH (08:07)
[2020-04-06] MEDS: TAMSULOSIN 0.4 MG CAP.ER.24H PO SCH (08:07)
[2020-04-06] MEDS: DOCUSATE 100 MG CAPSULE PO SCH (08:07)
[2020-04-06] MEDS: ASA/APAP/ CAFFEINE TABLET PO SCH (08:07)
[2020-04-06] MEDS: SODIUM CHLORIDE FLUSH 10ML SYR IVF SCH (08:08)
[2020-04-06] MEDS ORDERED: FOSF3PAC PO (09:47)
[2020-04-06] MEDS ORDERED: LINE600T15 PO (09:47)
[2020-04-06 12:22] VITALS: BP 160/88
== END 2020-04-06 12:45 | disposition home or self-care (01) | DRG 853 ==
LOC: ED 13:02 → SUATTDRO 15:20 → 4NE 15:24 → OBSVTOIN 15:24 → INTOOBSV 15:24 → 4NE 15:44 → CCU 04-03 14:23 → 4NE 04-04 10:58
PROVIDERS: ADMIT Internal Medicine; ATTEND Internal Medicine
PROC: 0T9B70Z Drainage of Bladder with Drainage Device, Via Natural or Artificial Opening (ICD-10-PCS; 2020-04-01)
PROC: 0TC68ZZ Extirpation of Matter from Right Ureter, Via Natural or Artificial Opening Endoscopic (ICD-10-PCS; 2020-04-03)
PROC: 0T778DZ Dilation of Left Ureter with Intraluminal Device, Via Natural or Artificial Opening Endoscopic (ICD-10-PCS; 2020-04-03)
PROC: BT1B1ZZ Fluoroscopy of Bladder and Urethra using Low Osmolar Contrast (ICD-10-PCS; 2020-04-03)
PROC: 0TF78ZZ Fragmentation in Left Ureter, Via Natural or Artificial Opening Endoscopic (ICD-10-PCS; 2020-04-03)
PROC: 0TP98DZ Removal of Intraluminal Device from Ureter, Via Natural or Artificial Opening Endoscopic (ICD-10-PCS; principal; 2020-04-03 09:30)
DX: A41.51 Sepsis due to Escherichia coli [E. coli] (principal); G93.41 Metabolic encephalopathy; J96.01 Acute respiratory failure with hypoxia; N13.6 Pyonephrosis; J44.9 Chronic obstructive pulmonary disease, unspecified; I10 Essential (primary) hypertension; F17.210 Nicotine dependence, cigarettes, uncomplicated; E87.6 Hypokalemia; M19.90 Unspecified osteoarthritis, unspecified site; K43.9 Ventral hernia without obstruction or gangrene; Z86.73 Personal history of transient ischemic attack (TIA), and cerebral infarction without residual deficits; Z20.828 Contact with and (suspected) exposure to other viral communicable diseases
CPT/HCPCS: 36415; 71045; 74176; 74420; 80048; 80053; 81001; 82360; 82962; 83605; 83735; 83880; 84100; 84484; 85025; 87040; 87077; 87081; 87086; 87184; 87186; 87635; 88300; 93005; G0378; J0295; J0690; J0696; J1100; J1335; J1885; J2405; J2704; J2710; J3010; J3480; Q0162; Q9961; C1769; C2617; J0330; J2060; J2270; J2765

== ENCOUNTER 2020-05-24 18:10 | Inpatient (IN) | payer BC, MEDICAID ==
[~2020-05-24] VITALS: Ht 162.6 cm; Wt 59.9 kg
[~2020-05-24 18:10] MED LIST changes: +FOSF3PAC PO; +LINE600T15 PO
[2020-05-24] MEDS ORDERED: ONDANSETRON 2MG/ML, 2ML ONE (18:57)
[2020-05-24] MEDS ORDERED: HYDROmorphone 1 MG/ML, 1ML INJ ONE ×2 (18:57→19:50)
[2020-05-24] MEDS ORDERED: SODIUM CHLORIDE 0.9% 1,000ML IVBOLUS ONE ×2 (19:00→19:30)
[2020-05-24] MEDS ORDERED: ONDANSETRON 2MG/ML, 2ML IVPush ONE (19:00)
[2020-05-24] MEDS ORDERED: SODIUM CHLORIDE FLUSH 10ML SYR IVF ONE (19:00)
[2020-05-24 19:18] LABS: BASOPHILS % (AUTO) 1 % (0-1); EOSINOPHILS % (AUTO) 3 % (1-7); LYMPHOCYTES % (AUTO) 9 % (22-44); MEAN CORPUSCULAR HEMOGLOBIN 33.1 pg (27.0-34.8); MEAN CORPUSCULAR HGB CONC 33.7 g/dL (32.4-35.8); MEAN PLATELET VOLUME 8.7 fL (7.4-10.4); MONOCYTES % (AUTO) 10 % (2-9); NEUTROPHILS % (AUTO) 77 % (42-75); PLATELET COUNT 310 x10^3/uL (130-400); RED BLOOD COUNT 4.18 x10^6/uL (3.82-5.3); RED CELL DISTRIBUTION WIDTH 15.5 % (9.6-15.2)
[2020-05-24 19:21] LABS: MD NO
[2020-05-24 19:23] LABS: MICROSCOPIC INDICATED
[2020-05-24 19:30] LABS: ALANINE AMINOTRANSFERASE 87 U/L (12-78); ALBUMIN 3.4 g/dL (3.4-5.0); ANION GAP 4 mmol/L (5-15); CALCIUM 9.5 mg/dL (8.5-10.1); CHLORIDE 115 mmol/L (98-107); CREATININE 1.34 mg/dL (0.55-1.02)
[2020-05-24] MEDS ORDERED: CEFTRIAXONE PMX 1GM/50ML 50 ML IVPB ONE (19:30)
[2020-05-24] MEDS: HYDROmorphone 1 MG/ML, 1ML INJ IVPush PRN ×2 (19:30→20:10)
[2020-05-24 19:33] LABS: ALKALINE PHOSPHATASE 236 U/L (45-117); BILIRUBIN,TOTAL 0.2 mg/dL (0.2-1.0)
[2020-05-24] MEDS ORDERED: CEFTRIAXONE PMX 1GM/50ML 50 ML ONE (19:50)
--- NOTE | 2020-05-24 19:56 | NUR ---
To admin abx shortly. lab at bedside for blood cultures
--- NOTE | 2020-05-24 20:27 | NUR ---
BLOOD CULTURES X2/LACTATE DRAWN->MEDICATED PER EMAR WITH ABX
[2020-05-24] MEDS ORDERED: ONDANSETRON 2MG/ML, 2ML IVPush PRN (22:00)
[2020-05-24] MEDS ORDERED: DOCUSATE 100 MG CAPSULE PO PRN (22:00)
[2020-05-24] MEDS ORDERED: LABETALOL 5MG/ML, 20ML IVPush PRN (22:00)
[2020-05-24] MEDS ORDERED: TEMAZEPAM 15 MG CAPSULE PO PRN (22:00)
[2020-05-24] MEDS ORDERED: METHOCARBAMOL 500 MG TABLET PO PRN (22:00)
[2020-05-24] MEDS ORDERED: ACETAMINOPHEN 325 MG TABLET PO PRN (22:00)
[2020-05-24] MEDS ORDERED: GUAIFENESIN/DM 200-20MG, 10ML UDC PO PRN (22:00)
[2020-05-24] MEDS: SODIUM CHLORIDE 0.9% 1,000 ML IV SCH (23:09)
--- NOTE | 2020-05-24 23:09 | NUR ---
MIVF STARTED PER EMAR MED RECC COMPLETED REPORT TO TEO COSTA
--- NOTE | 2020-05-24 23:19 | NUR ---
REPORT FROM JULISSA ARIAS. PT RESTING COMFORTABLY IN [facility], [facility] NOTED. AWAITING ADMIT ASSIGNMENT
--- NOTE | 2020-05-24 23:32 | NUR ---
RAPID COVID OBTAINED FROM PATIENT IN PREPARATION FOR POSSIBILITY OF NEEDED SURGERY. SPECIMEN COLLECTED AND WALKED TO LAB.
--- NOTE | 2020-05-24 23:50 | NUR ---
REPORT CALLED TO JULISSA LR ON ONC. PT PREPARED FOR TRANSPORT. DENIES NEED FOR FURTHER PAIN MEDICATIONS
[2020-05-25 01:29] VITALS: BP 116/80
[2020-05-25 01:59] VITALS: BP 128/79
[2020-05-25] MEDS: morphine SULFATE 10 MG/ML, 1ML IVPush PRN ×5 (02:16→20:25)
[2020-05-25 06:42] LABS: BASOPHILS % (AUTO) 1 % (0-1); EOSINOPHILS % (AUTO) 2 % (1-7); LYMPHOCYTES % (AUTO) 10 % (22-44); MEAN CORPUSCULAR HEMOGLOBIN 32.2 pg (27.0-34.8); MEAN CORPUSCULAR HGB CONC 32.5 g/dL (32.4-35.8); MEAN PLATELET VOLUME 8.6 fL (7.4-10.4); MONOCYTES % (AUTO) 9 % (2-9); NEUTROPHILS % (AUTO) 77 % (42-75); PLATELET COUNT 290 x10^3/uL (130-400); RED BLOOD COUNT 3.96 x10^6/uL (3.82-5.3); RED CELL DISTRIBUTION WIDTH 15.2 % (9.6-15.2)
[2020-05-25 06:53] LABS: ANION GAP 4 mmol/L (5-15); CALCIUM 9.3 mg/dL (8.5-10.1); CHLORIDE 118 mmol/L (98-107)
[2020-05-25 06:54] LABS: CREATININE 1.27 mg/dL (0.55-1.02); MD NO
[2020-05-25] MEDS: AMPICILLIN 1 GM in SODIUM CHLORIDE 0.9% 100 ML IV SCH ×3 (08:13→20:09)
[2020-05-25] MEDS: LISINOPRIL 20 MG TABLET PO SCH (08:21)
[2020-05-25] MEDS ORDERED: FAMOTIDINE 20 MG TABLET PO SCH (09:00)
[2020-05-25 09:31] VITALS: BP 93/60
[2020-05-25] MEDS: ERTAPENEM 1 GM in SODIUM CHLORIDE 0.9% 50 ML IV SCH (10:14)
[2020-05-25] MEDS: SODIUM CHLORIDE 0.9% 1,000 ML IV SCH (12:06)
[2020-05-25 12:53] VITALS: BP 141/71
[2020-05-25] MEDS: HEPARIN 5,000 UNITS/ML, 1ML SQ SCH ×2 (14:26→23:35)
[2020-05-25] MEDS: DEXAMETHASONE 4 MG/ML, 1ML IVPush SCH (14:28)
[2020-05-25] MEDS: LACTATED RINGERS 1,000 ML IV SCH (16:44)
[2020-05-25 18:56] VITALS: BP 124/80
[2020-05-25] MEDS: OXYcodone IR 5MG TABLET PO PRN (23:45)
[2020-05-26 01:49] VITALS: BP 102/68
[2020-05-26] MEDS: AMPICILLIN 1 GM in SODIUM CHLORIDE 0.9% 100 ML IV SCH ×2 (02:10→08:25)
[2020-05-26 03:53] LABS: BASOPHILS % (AUTO) 1 % (0-1); EOSINOPHILS % (AUTO) 0 % (1-7); LYMPHOCYTES % (AUTO) 8 % (22-44); MEAN CORPUSCULAR HEMOGLOBIN 32.5 pg (27.0-34.8); MEAN CORPUSCULAR HGB CONC 33.2 g/dL (32.4-35.8); MEAN PLATELET VOLUME 9.3 fL (7.4-10.4); MONOCYTES % (AUTO) 5 % (2-9); NEUTROPHILS % (AUTO) 86 % (42-75); PLATELET COUNT 256 x10^3/uL (130-400); RED BLOOD COUNT 3.34 x10^6/uL (3.82-5.3); RED CELL DISTRIBUTION WIDTH 14.8 % (9.6-15.2)
[2020-05-26 03:55] LABS: MD NO
[2020-05-26 04:05] LABS: ALBUMIN 2.6 g/dL (3.4-5.0); ANION GAP 4 mmol/L (5-15); CALCIUM 9.3 mg/dL (8.5-10.1); CHLORIDE 118 mmol/L (98-107)
[2020-05-26 04:09] LABS: ALANINE AMINOTRANSFERASE 39 U/L (12-78); ALKALINE PHOSPHATASE 180 U/L (45-117); BILIRUBIN,TOTAL 0.2 mg/dL (0.2-1.0); CREATININE 1.06 mg/dL (0.55-1.02)
[2020-05-26] MEDS: OXYcodone IR 5MG TABLET PO PRN ×2 (04:45→08:24)
[2020-05-26] MEDS: HEPARIN 5,000 UNITS/ML, 1ML SQ SCH (06:47)
[2020-05-26 07:50] VITALS: BP 154/97
[2020-05-26] MEDS: DEXAMETHASONE 4 MG/ML, 1ML IVPush SCH (08:24)
[2020-05-26] MEDS: LISINOPRIL 20 MG TABLET PO SCH (08:25)
[2020-05-26] MEDS ORDERED: FAMOTIDINE 20 MG TABLET PO SCH (09:00)
[2020-05-26] MEDS: ERTAPENEM 1 GM in SODIUM CHLORIDE 0.9% 50 ML IV SCH (09:40)
[2020-05-26] MEDS: LACTATED RINGERS 1,000 ML IV SCH (10:30)
[2020-05-26] MEDS ORDERED: FLUC200T4 PO (10:55)
== END 2020-05-26 13:38 | disposition home or self-care (01) | DRG 178 ==
LOC: ED 20:51 → EDIP 21:27 → 4NW 05-25 00:09 → 3N 05-25 01:36
PROVIDERS: ADMIT Internal Medicine; ATTEND Family Medicine
DX: U07.1 COVID-19 (principal); N13.6 Pyonephrosis; N17.9 Acute kidney failure, unspecified; E87.8 Other disorders of electrolyte and fluid balance, not elsewhere classified; F17.210 Nicotine dependence, cigarettes, uncomplicated; I10 Essential (primary) hypertension; R09.02 Hypoxemia; J44.9 Chronic obstructive pulmonary disease, unspecified; K80.20 Calculus of gallbladder without cholecystitis without obstruction; Z87.442 Personal history of urinary calculi
CPT/HCPCS: 36415; 71045; 74176; 80048; 80053; 81001; 83605; 83735; 84100; 85025; 87040; 87086; 87106; 87635; G0378; J0290; J0696; J1100; J1170; J1335; J1644; J2405; J2270; J7030; J7120; U0003